=== PATIENT | male | born 1980 | race Caucasian/White ===

== ENCOUNTER 2019-12-02 16:55 | Emergency (ER) | payer OTHER ==
[2019-12-02] MEDS ORDERED: BACIGUENT PACKET ONE (17:34)
[2019-12-02] MEDS ORDERED: BACIGUENT PACKET TP ONE (17:35)
[2019-12-02] MEDS ORDERED: BACTRIM DS TABLET PO STA (17:35)
[2019-12-02] MEDS ORDERED: Adacel Vial IM ONE ×2 (17:36→17:43)
--- NOTE | 2019-12-02 17:36 | ERPHSYRPT ---
- History of Present Illness Time Seen by Provider: 12/02/19 17:03 Source: patient Patient Subjective Stated Complaint: Pt states "I slipped and hit a propeller with my foot and cut my toe." Triage Nursing Assessment: Pt presented alert and oriented X 3, skin pwd. Pt has deep laceration to 4th toe. bone exposed. slight bleeding noted. CSM X 4 throughout. Physician History: 39 years old male presented in the ER with chief complaint of laceration fourth left toe after he accidentally hit the propeller of the board while at the chin. There was bleeding initially but stopped after applying pressure. He is complaining of dull aching/burning sensation in the fourth toe, aggravated with movements and better with being still. No numbness of the toe distal to laceration. Method of Injury: other Occurred: just prior to arrival Quality: burning Severity of Pain-Max: mild Severity of Pain-Current: mild Lower Extremities Pain: 4th toe: left Modifying Factors: Improves With: movement Associated Symptoms: none Allergies/Adverse Reactions: No Known Drug Allergies Allergy (Unverified 12/02/19 17:07) Hx Tetanus, Diphtheria Vaccination/Date Given: No Hx Influenza Vaccination/Date Given: No Hx Pneumococcal Vaccination/Date Given: No Immunizations Up to Date: Yes Travel Risk - International Travel Have you traveled outside of the country in past 3 weeks: No - Coronavirus Screening Close contact with a COVID-19 positive Pt in past 14-21 Days: No - Review of Systems Constitutional: No Symptoms Eyes: No Symptoms Respiratory: No Symptoms Cardiac: No Symptoms Musculoskeletal: Injury Skin: Skin Lesions Neurological: No Symptoms Psychological: No Symptoms Endocrine: No Symptoms Hematologic/Lymphatic: No Symptoms Immunological/Allergic: No Symptoms - Past Medical History Pertinent Past Medical History: No - Past Surgical History Past Surgical History: No - Social History Smoking Status: Current every day smoker How long have you smoked: years Exposure to second hand smoke: Yes Drug Use: none Patient Lives Alone: No - Nursing Vital Signs Nursing Vital Signs: Initial Vital Signs Temperature 99.4 F 12/02/19 16:59 Pulse Rate 84 12/02/19 16:59 Respiratory Rate 20 12/02/19 16:59 Blood Pressure 143/82 12/02/19 16:59 O2 Sat by Pulse Oximetry 97 12/02/19 16:59 Pain Scale Pain Intensity 0 - Physical Exam General Appearance: no apparent distress Neck Exam: normal inspection, full range of motion Cardiovascular/Respiratory Exam: normal breath sounds, regular rate/rhythm Ankle Exam: bilateral ankle: non-tender, normal inspection, normal range of motion Foot Exam: right foot: non-tender, normal inspection, normal range of motion, no evidence of injury, left foot: abrasions/lacerations (Left fourth digit base along interdigital space going to sole of foot. 4 cm. Superficial degloving. Intact range of motion against resistance), pain, soft tissue tenderness, swelling Neuro/Tendon Exam: normal sensation, normal motor functions, normal tendon functions Mental Status Exam: alert, oriented x 3 Skin Exam: normal color, warm SpO2 Interpretation: normal SpO2: 97 O2 Delivery: Room Air Procedures - Laceration/Wound Repair Left Toe Wound Location: Left, foot Wound Length (cm): 4 Wound's Depth, Shape: superficial, irregular, flap Wound Explored: clean Irrigated: Yes Hibiclens Prep: Yes Anesthesia: 1% Lidocaine Volume Anesthetic (ccs): 5 Wound Repaired With: sutures Suture Size/Type: 4-0, ethilon Number of Sutures: 6 Layer Closure?: No Sterile Dressing Applied?: Yes Splint Applied?: No Ordered Tests: Medication Summary Discontinued Medications Generic Name Dose Route Start Last Admin Trade Name Freq PRN Reason Stop Dose Admin Bacitracin Zinc Confirm 12/02/19 17:34 Baciguent Packet Administered 12/02/19 17:35 Dose 1 gm .ROUTE .STK-MED ONE Bacitracin Zinc 0.9 gm 12/02/19 17:35 12/02/19 17:43 Baciguent Packet TP 12/02/19 17:36 0.9 gm STAT ONE Administration Diphtheria/Tetanus/Acell Pertussis 0.5 ml 12/02/19 17:36 12/02/19 17:45 Adacel Vial IM 12/02/19 17:37 0.5 ml .ONCE ONE Administration Diphtheria/Tetanus/Acell Pertussis Confirm 12/02/19 17:43 Adacel Vial Administered 12/02/19 17:44 Dose 0.5 ml IM .STK-MED ONE Trimethoprim/Sulfamethoxazole 1 tab 12/02/19 17:35 12/02/19 17:45 Bactrim Ds Tablet PO 12/02/19 17:36 1 tab STAT STA Administration Trimethoprim/Sulfamethoxazole Confirm 12/02/19 17:43 Bactrim Ds Tablet Administered 12/02/19 17:44 Dose 1 tab PO .STK-MED ONE - Progress Progress: improved Progress Note: 12/02/19 17:41 Laceration is repaired. Tetanus is updated. Outpatient follow-up. Counseled pt/family regarding: diagnosis, need for follow-up - Departure Departure Disposition: Home Clinical Impression: Toe laceration Qualifiers: Encounter type: initial encounter Toe: unspecified toe Damage to nail status: without damage Foreign body presence: without foreign body Laterality: left Qualified Code(s): S91.119A - Laceration without foreign body of unspecified toe without damage to nail, initial encounter Condition: Good Critical Care Time: No Referrals: DOCTOR,NO FAMILY [Primary Care Provider] - Instructions: Laceration Repair With Stitches (DC) Additional Instructions: It clean. Take Tylenol/ibuprofen as needed. Follow-up with primary care for reevaluation and suture removal in 10 to 12 days. Return to ER for increasing pain swelling redness discharge/fever or chills. Prescriptions: Smz/Tmp Ds Tablet [Bactrim Ds Tablet] 1 udtab PO BID #10 tablet
[2019-12-02] MEDS ORDERED: BACTRIM DS TABLET PO ONE (17:43)
[2019-12-02 17:44] VITALS: BP 124/83; PULSE 88
[2019-12-04 17:37] VITALS: O2SAT 97
== END 2019-12-02 17:54 | disposition home or self-care (01) ==
LOC: ED 16:55
DX: S91.119A Laceration without foreign body of unspecified toe without damage to nail, initial encounter (principal); W01.118A Fall on same level from slipping, tripping and stumbling with subsequent striking against other sharp object, initial encounter; Y93.89 Activity, other specified; Y92.828 Other wilderness area as the place of occurrence of the external cause
CPT/HCPCS: 12002; 90471; 90715; 99283; A9270-GY